=== PATIENT | female | born 1940 | race Two or more races ===

== ENCOUNTER 2023-12-14 15:22 | Inpatient (IN) | payer OTHER, MEDICAID ==
[~2023-12-14] VITALS: Ht 152.4 cm; Wt 73.2 kg
--- NOTE | 2023-12-14 15:30 | ED.PDOC ---
GI ASSESSMENT HPI Comments 83 y.o female with PMH of HTN, DM, hyperlipidemia, asthma, AFIB, presents to the ED via EMS for a chief complaint of rectal bleeding associated with constipation and suprapubic pain. EMS reports patient was at [facility] clinic today for c/o of ongoing constipation, had an enema inserted and shortly after staff noticed patient had bleeding. Patient is on Eliquis for AFIB. Patient complains of sharp, constant abdominal pain rating a 9/10 on the pain scale that has no alleviating factors. Patient denies any nausea, vomiting, fever, chills, or urinary symptoms. Time Seen by MD: 15:22 Reviewed Notes: Nurses Notes, Dry Wall Nailer Notes, Medications, Allergies Information Source: Patient, Emergency Med Personnel Mode of Arrival: EMS Timing: Came on: Gradually Duration: Since onset Quality: Sharp Vomitus: None Stool: Empty Severity: Moderate Recent: None Recent Hx of: Constipation Pain Location: Suprapubic Associated sign and symptoms: Abdominal Pain, Blood in Stool Past Medical History PAST MEDICAL HISTORY: AFIB, Asthma, DM, High Lipids, HTN Surgical History: Pacemaker Surgical History (Other): cataracts BATH ATTENDANT History: No Pertinent BATH ATTENDANT History Family History Family History: Reviewed,noncontributory to illness, No family hx of Cancer, No family hx of DM, No family hx of Heart aayush, No family hx of HTN, No family hx ofKidney aayush, No family hx of Liver aayush, No family hx of Lung aayush, No family hx of Stroke Social History Smoker: Non-Smoker Alcohol: Denies ETOH Use Drugs: Denies Drug Use Lives In: Home Constitutional: denies: chills, diaphoresis, fatigue, fever, malaise, sweats, weakness, others EENTM: denies: blurred vision, double vision, ear bleeding, ear discharge, ear drainage, ear pain, ear ringing, eye pain, eye redness, hearing loss, mouth pain, mouth swelling, nasal discharge, nose bleeding, nose congestion, nose pain, photophobia, tearing, throat pain, throat swelling, voice changes, others Respiratory: denies: cough, hemoptysis, orthopnea, SOB at rest, shortness of breath, SOB with excertion, stridor, wheezing, others Cardiovascular: denies: chest pain, dizzy spells, diaphoresis, Dyspnea on exertion, edema, irregular heart beat, left arm pain, lightheadedness, palpitations, PND, syncope, others Gastrointestinal: reports: abdominal pain, rectal bleeding; denies: abdomen distended, blood streaked bowels, constipated, diarrhea, dysphagia, difficulty swallowing, hematemesis, melena, nausea, poor appetite, poor fluid intake, rectal pain, vomiting, others Genitourinary: denies: abnormal vagina bleeding, burning, dyspareunia, dysuria, flank pain, frequency, hematuria, incontinence, pain, , vagina discharge, urgency, others Neurological: denies: dizziness, fainting, headache, left sided numbness, left sided weakness, numbness, paresthesia, pre-existing deficit, right sided numbness, right sided weakness, seizure, speech problems, tingling, tremors, weakness, others Musculoskeletal: denies: back pain, gout, joint pain, joint swelling, muscle pain, muscle stiffness, neck pain, others Integumetry: denies: bruises, change in color, change in hair/nails, dryness, laceration, lesions, lumps, rash, wounds, others Allergic/Immunocompromised: denies: Difficulty Healing, Frequent Infections, Hives, Itching, others Hematologic/Lymphatic: denies: anemia, blood clots, easy bleeding, easy b ruising, swollen glands, others Endocrine: denies: excessive hunger, excessive sweating, excessive thirst, excessive urination, flushing, intolerance to cold, intolerance to heat, unexplained weight gain, unexplained weight loss, others Psychiatric: denies: anxiety, bipolar disorder, depression, hopeless, panic disorder, schizophrenia, sleepless, suicidal, others All Other Systems: Reviewed and Negative Physical Exam General Appearance: Moderate Distress HEENT: Normal ENT Inspection, Pharynx Normal, TMs Normal Neck: Full Range of Motion, Non-Tender, Normal, Normal Inspection Respiratory: Chest Non-Tender, Lungs Clear, No Accessory Muscle Use, No Respiratory Distress, Normal Breath Sounds Cardiovascular: No Edema, No JVD, No Murmur, No Gallop, Normal Peripheral Pulses, Regular Rate/Rhythm Breast Exam: Deferred Gastrointestinal: Diffuse, No Organomegaly, No Pulsatile Mass, Normal Bowel Sounds, Soft, Tenderness Genitalia: Deferred Pelvic: Deferred Rectal: Deferred Extremities: No calf tenderness, Normal capillary refill, Normal inspection, Normal range of motion, Non-tender, No pedal edema Musculoskeletal : Apperance: Normal Neurologic: Alert, director of purchasing II-XII nml as Tested, No Motor Deficits, Normal Affect, Normal Mood, No Sensory Deficits Cerebellar Function: Normal Reflexes: Normal Skin: Dry, Normal Color, Warm Lymphatic: No Adenopathy Was a procedure done? Was a procedure done?: No GI differential Dx Differential Diagnosis: Constipation, Esophagitis, Gastritis/PUD, Esophageal Varicies X-Ray, Labs, Meds, VS Vital Signs Date Time Temp Pulse Resp B/P (MAP) Pulse Ox O2 Delivery O2 Flow Rate FiO2 12/14/23 15:43 98.3 68 16 107/62 (77) 97 Lab Test 12/14/23 15:53 Range/Units White Blood Count 8.4 4.4-10.8 10^3/uL Red Blood Count 4.18 4.0-5.20 10^6/uL Hemoglobin 13.8 12.2-16.2 g/dL Hematocrit 40.5 36.0-46.0 % Mean Corpuscular Volume 96.9 80.0-100.0 fL Mean Corpuscular Hemoglobin 33.1 H 28.0-32.0 pg Mean Corpuscular Hemoglobin Concent 34.2 32.0-36.0 g/dL Red Cell Distribution Width 14.8 H 11.8-14.3 % Platelet Count 247 140-450 10^3/uL Mean Platelet Volume 7.9 6.9-10.8 fL Neutrophils (%) (Auto) 77.7 37.0-80.0 % Lymphocytes (%) (Auto) 12.1 10.0-50.0 % Monocytes (%) (Auto) 8.9 0.0-12.0 % Eosinophils (%) (Auto) 0.8 0.0-7.0 % Basophils (%) (Auto) 0.5 0.0-2.0 % Neutrophils # (Auto) 6.5 1.6-8.6 10 ^3/uL Lymphocytes # (Auto) 1.0 0.4-5.4 10 ^3/uL Monocytes # (Auto) 0.7 0-1.3 10 ^3/uL Eosinophils # (Auto) 0.1 0-0.8 10 ^3/uL Basophils # (Auto) 0 0-0.2 10 ^3/uL Nucleated Red Blood Cells 0.1 % Sodium Level 137 136-145 mmol/L Potassium Level 2.5 *L 3.5-5.1 mmol/L Chloride Level 98 98-107 mmol/L Carbon Dioxide Level 31 20-31 mmol/L Anion Gap 8 5-15 Blood Urea Nitrogen 41 H 9-23 mg/dL Creatinine 1.19 H 0.550-1.02 mg/dL Glomerular Filtration Rate Calc 45 >90 mL/min BUN/Creatinine Ratio 34.5 H 10.0-20.0 Serum Glucose 123 H 74-106 mg/dL Calcium Level 10.7 H 8.7-10.4 mg/dL Total Bilirubin 0.5 0.2-1.0 mg/dL Aspartate Amino Transferase (AST) 25 13-40 U/L Alanine Aminotransferase (ALT) 22 7-40 U/L Alkaline Phosphatase 123 H 46-116 U/L Total Protein 7.0 5.7-8.2 g/dL Albumin 4.3 3.2-4.8 g/dL The patient's CBC is within normal limits The chemistry panel shows hypokalemia at 2.5 The BUN is 41 the creatinine is 1.[address] scan of the abdomen and pelvis shows: IMPRESSION: No evidence of acute abdominopelvic abnormalities. Small right hepatic lobe cyst. Moderate amount of fecal material within the colon. Enlarged prostate. Recommend correlation with PSA. At this time, the patient is being admitted to the hospitalist. The patient's diagnosis is abdominal pain and fecal impaction We did speak to the patient's primary care physician about the patient's lower GI bleeding as well. Images Reviewed?: Images reviewed and evaluated by me Time of 1ST Reevaluation: 15:26 Reevaluation 1ST: Unchanged Patient Education/Counseling: Diagnosis, Treatment, Prognosis Family Education/Counseling: No Family Present Departure 1 Departure Time of Disposition: 17:14 Impression: Primary Impression: Intractable abdominal pain Additional Impressions: Fecal impaction Lower GI bleed Disposition: ADMITTED INPATIENT Admit to: Med Surg Condition: Fair Critical Care Note Critical Care Time?: No Stability Stability form required: Yes Unstable for transfer: ED Physician Assesment (Clinical assesment) I personally scribed for CARLOS COVARRUBIAS MD ([email or web address]) on 12/14/23 at 15:30. Electronically submitted by Britany Gould ([facility]). CARLOS COVARRUBIAS MD Dec 14, 2023 15:30
[2023-12-14 16:13] LABS: Basophils # (auto) 0 10 ^3/uL (0-0.2); Basophils % (auto) 0.5 % (0.0-2.0); Eosinophils # (auto) 0.1 10 ^3/uL (0-0.8); Eosinophils % (auto) 0.8 % (0.0-7.0); Hematocrit 40.5 % (36.0-46.0); Hemoglobin 13.8 g/dL (12.2-16.2); Lymphocytes % (auto) 12.1 % (10.0-50.0); Mean Corpuscular Hemoglobin 33.1 pg (28.0-32.0); Mean Corpuscular Hgb Conc. 34.2 g/dL (32.0-36.0); Mean Corpuscular Volume 96.9 fL (80.0-100.0); Monocytes # (auto) 0.7 10 ^3/uL (0-1.3); Monocytes % (auto) 8.9 % (0.0-12.0); Neutrophils # (auto) 6.5 10 ^3/uL (1.6-8.6); Neutrophils % (auto) 77.7 % (37.0-80.0); Nucleated Red Blood Cells % 0.1 %; Platelet Count (auto) 247 10^3/uL (140-450); Red Blood Cells 4.18 10^6/uL (4.0-5.20); Red Cell Distribution Width 14.8 % (11.8-14.3); White Blood Cell 8.4 10^3/uL (4.4-10.8)
[2023-12-14 16:34] LABS: Alanine Aminotransferase 22 U/L (7-40); Albumin 4.3 g/dL (3.2-4.8); Alkaline Phosphatase 123 U/L (46-116); Anion Gap 8 (5-15); Aspartate Aminotransferase 25 U/L (13-40); BUN/Creatinine Ratio 34.5 (10.0-20.0); Bilirubin, Total 0.5 mg/dL (0.2-1.0); Blood Urea Nitrogen 41 mg/dL (9-23); Calcium 10.7 mg/dL (8.7-10.4); Carbon Dioxide 31 mmol/L (20-31); Chloride 98 mmol/L (98-107); Glucose 123 mg/dL (74-106); Sodium 137 mmol/L (136-145)
[2023-12-14 16:48] LABS: Potassium 2.5 mmol/L (3.5-5.1)
[2023-12-14 17:03] VITALS: PULSE 76; RESP 18; O2SAT 98
--- NOTE | 2023-12-14 17:06 | DVH ---
Exam: CT CT AB PEL WO CON-NO ORAL OR IV History: PAIN Comparison Study: None available at time of dictation. TECHNIQUE: Multidetector CT of the abdomen was performed from lung bases to pubic symphysis. Imaging was performed without IV contrast. Axial, coronal and sagittal multiplanar reformats were obtained fr om the axial data set by the technologist. Radiation Dose Information: CT Dose: CTDI volume is 24.84 mGy. Dose-length product is 1151.95 mGy*cm FINDINGS: Evaluation of solid organs is limited due to lack of intravenous contrast use. Findings: Lung Bases: No acute or significant lung base finding. Normal heart size. No pleural or pericardial effusion. Liver: The liver is normal in size. No focal lesions. Gallbladder and Biliary Tree: Gallbladder is been surgically removed. Spleen: Unremarkable Pancreas: The pancreas is grossly normal in appearance. Adrenal Glands: Unremarkable Kidneys: Kidneys are grossly normal without calculi. Mild bilateral pyelocaliectasis. may be due to urinary distention. There is a 9-10 mm hyperdense cortical lesion left kidney most likely a hyperden se cyst. Bladder: Marked urinary distention measuring 18 cm x 11 cm x 18 cm. Bowel: The stomach is grossly normal in appearance. Small bowel and colon are normal in caliber and d istribution. 8 x 7 cm stool-filled rectum consistent with fecal impaction. The appendix is not visual ized; however, no secondary findings of acute appendicitis identified. Ascites: Absent Lymphadenopathy: No mesenteric, retroperitoneal or periportal lymphadenopathy. Abdominal Wall and Mesentery: 6 x 5 cm fat containing umbilical hernia. Vasculature: The visualized abdominal aorta is normal in size and caliber. Evaluation of abdominal a nd pelvic vessels is limited due to lack of intravenous contrast. Pelvic Organs: Unremarkable Musculoskeletal: No aggressive focal bony lesions, acute fractures or dislocation. Dextroscoliosis wi th bony spondylosis and degenerative disc changes throughout the lumbar spine. Soft tissues: Unremarkable IMPRESSION: 1. Urinary retention. Markedly distended bladder with urine measuring 18 x 11 x 18 cm. 2. 5 x 6 cm fat containing ventral hernia. 3. Gallbladder is been surgically removed. Radiation optimization: All CT scans at this facility use at least one of these dose optimization audi hniques: automated exposure control mA and/or kV adjustment per patient size (includes targeted exam s where dose is matched to clinical indication) or iterative reconstruction.
[2023-12-14] MEDS: POTASSIUM CHL 20MEQ/100ML 100 ML IV ONE (17:37)
[2023-12-14] MEDS: MORPHINE SULFATE INJ 2 MG/ml SYRG IV ONE (17:38)
[2023-12-14] MEDS: ONDANSETRON HCL 4 MG/2 ML VIAL IV ONE (17:39)
[2023-12-14] MEDS ORDERED: NITROGLYCERIN 0.4 MG SL TAB SL PRN (21:15)
[2023-12-14] MEDS ORDERED: ACETAMINOPHEN 325 MG TAB PO PRN (21:15)
[2023-12-14] MEDS ORDERED: ONDANSETRON HCL 4 MG/2 ML VIAL IV PRN (21:15)
[2023-12-14] MEDS ORDERED: MORPHINE SULFATE INJ 2 MG/ml SYRG IV PRN (21:15)
--- NOTE | 2023-12-14 21:24 | DVHHPRES ---
History of Present Illness Resident Creating Document: ANDRES ANDREWS RESIDENT History of Present Illness This is a 83 yr old female with PMH of HTN, CHF, s/p pacemaker , type 2 DM, hyperlipidemia, asthma, AFIB on eloquis, presented to the ED via EMS for a chief complaint of rectal bleeding associated with constipation and suprapubic pain. EMS reports patient was at [facility] clinic today for c/o of ongoing constipation, had an enema inserted and shortly after staff noticed patient had bleeding. Patient also complains of sharp, constant localized abdominal pain 9/10 with no aggravating or relieving factors and not associated with nausea and vomiting. The patient also mentions bilateral leg swelling for last 1 week but denies any shortness of breath cough or dizziness. Cardiovascular: AFIB, CHF, HTN Endocrine: Diabetes Past Medical History HTN, CHF, s/p pacemaker , type 2 DM, hyperlipidemia, asthma, AFIB Past Surgical History Surgery for pacemaker implantation Smoke: No ALCOHOL: none Drugs: None Lives: Alone Review of Systems Constitutional: No: Fever, Chills, Sweats, Weakness, Malaise, Other Eyes: No: Pain, Vision change, Conjunctivae inflammation, Eyelid inflammation, Other, Redness ENT: No: Ear pain, Ear discharge, Nose pain, Nose discharge, Nose congestion, Mouth pain, Mouth swelling, Throat pain, Throat swelling, Other Respiratory: No: Cough, Dry, Shortness of breath, SOB with excertion, Wheezing, Hemoptysis, Pleuritic Pain, Sputum, Wheezing, Other Cardiovascular: No: Chest Pain, Palpitations, Orthopnea, Paroxysmal Noc. Dyspn ea, Edema, Lt Headedness, Other Gastrointestinal: Abdominal Pain, Constipation, Hematochezia; No: Nausea, Vomiting, Diarrhea, Melena, Other Genitourinary: No Dysuria, No Frequency, No Incontinence, No Hematuria, No Retention, No Other Musculoskeletal: No: other, neck pain, shoulder pain, arm pain, back pain, hand pain, leg pain, foot pain Skin: No: Rash, Lesions, Jaundice, Bruising, Other Neurological: No: Weakness, Numbness, Incoordination, Change in speech, Confusion, Seizures, Other Allergies: Coded Allergies: Penicillins (Verified Allergy, Unknown, 12/14/23) Medications Current Medications Medications Dose Ordered Sig/Mary Route Start Time Stop Time Status Last Admin Dose Admin Sodium Chloride 10 ml Q8HR IV 12/14/23 22:00 Acetaminophen 325 mg Q4HP PRN PO 12/14/23 21:15 Acetaminophen/ Hydrocodone Bitart 1 tab Q4HP PRN PO 12/14/23 21:15 Ondansetron HCl 4 mg Q4HP PRN IV 12/14/23 21:15 Enoxaparin Sodium 40 mg DAILY SC 12/15/23 10:00 Nitroglycerin 0.4 mg Q5MINP PRN SL 12/14/23 21:15 Morphine Sulfate 2 mg Q30M PRN IV 12/14/23 21:15 Exam Vital Signs Vital Signs Date Time Temp Pulse Resp B/P (MAP) Pulse Ox O2 Delivery O2 Flow Rate FiO2 12/14/23 20:00 60 13 100/36 (57) 94 12/14/23 19:30 Room Air* 0 21 12/14/23 17:03 98.2 98.2 General Appearance: Alert, Oriented X3, Cooperative, No acute distress HEENT: Atraumatic, PERRLA, EOMI, Mucous membr. moist/pink Respiratory: Clear to auscultation, Normal air movement Cardiovascular: Regular rate, Normal S1, Normal S2, No murmurs Abdominal: Normal bowel sounds, Soft, No tenderness, No hepatospenomegaly, No masses Extremities: No clubbing, No cyanosis, Normal pulses, No tenderness/swelling, Other (Bilateral 2+ pedal edema) Skin: No rashes, No breakdown, No significant lesion Neuro: Normal speech, Strength at 5/5 X4 ext, Normal tone, Sensation intact, Other (Use walker, grossly intact cranial nerves) Psych/Mental Status: Mental status NL, Mood NL Labs/Xrays Labs Test 12/14/23 15:53 Range/Units White Blood Count 8.4 4.4-10.8 10^3/uL Red Blood Count 4.18 4.0-5.20 10^6/uL Hemoglobin 13.8 12.2-16.2 g/dL Hematocrit 40.5 36.0-46.0 % Mean Corpuscular Volume 96.9 80.0-100.0 fL Mean Corpuscular Hemoglobin 33.1 H 28.0-32.0 pg Mean Corpuscular Hemoglobin Concent 34.2 32.0-36.0 g/dL Red Cell Distribution Width 14.8 H 11.8-14.3 % Platelet Count 247 140-450 10^3/uL Mean Platelet Volume 7.9 6.9-10.8 fL Neutrophils (%) (Auto) 77.7 37.0-80.0 % Lymphocytes (%) (Auto) 12.1 10.0-50.0 % Monocytes (%) (Auto) 8.9 0.0-12.0 % Eosinophils (%) (Auto) 0.8 0.0-7.0 % Basophils (%) (Auto) 0.5 0.0-2.0 % Neutrophils # (Auto) 6.5 1.6-8.6 10 ^3/uL Lymphocytes # (Auto) 1.0 0.4-5.4 10 ^3/uL Monocytes # (Auto) 0.7 0-1.3 10 ^3/uL Eosinophils # (Auto) 0.1 0-0.8 10 ^3/uL Basophils # (Auto) 0 0-0.2 10 ^3/uL Nucleated Red Blood Cells 0.1 % Sodium Level 137 136-145 mmol/L Potassium Level 2.5 *L 3.5-5.1 mmol/L Chloride Level 98 98-107 mmol/L Carbon Dioxide Level 31 20-31 mmol/L Anion Gap 8 5-15 Blood Urea Nitrogen 41 H 9-23 mg/dL Creatinine 1.19 H 0.550-1.02 mg/dL Glomerular Filtration Rate Calc 45 >90 mL/min BUN/Creatinine Ratio 34.5 H 10.0-20.0 Serum Glucose 123 H 74-106 mg/dL Calcium Level 10.7 H 8.7-10.4 mg/dL Total Bilirubin 0.5 0.2-1.0 mg/dL Aspartate Amino Transferase (AST) 25 13-40 U/L Alanine Aminotransferase (ALT) 22 7-40 U/L Alkaline Phosphatase 123 H 46-116 U/L Total Protein 7.0 5.7-8.2 g/dL Albumin 4.3 3.2-4.8 g/dL Assessment/Plan Assessment/Plan Assessment and plan: # Rectal bleeding likely due to constipation, rule out lower GI bleeding - CT abdomen pelvis revealed no acute abdominopelvic findings. - Clear liquid diet - Protonix 40 mg IV daily - Ordered FOBT - Monitor H/H # Low transit constipation - Lactulose 30 mL p.o. once. # GOLDY likely due to hemodynamically mediated/VMN - IV normal saline at 75 mL/hr - Monitor BMP # Chronic atrial fibrillation with secondary hypercoagulable state - Amiodarone 100 mg p.o. daily - Hold Eliquis due to possibility of the bleeding # Hypercalcemia likely due to dehydration - IV normal saline at 75 mL/hr # Hypokalemia - Replenished # Elevated alkaline phosphatase, rule out liver pathology - Ordered hepatitis panel and and coagulation studies # PUD prophylaxis - Protonix 40 mg IV daily # DVT prophylaxis - Lovenox 40 mg sc daily Goal of care discussed with the patient for more than 20 minutes full code Plan of treatment discussed with Dr. Duffy Plan discussed with: Patient, Other My Orders Orders - ANDRES ANDREWS RESIDENT Procedure Category Date Status Time Admit ADMIT 12/14/23 Transmitted 21:11 Allergies ALPHONSO 12/14/23 In Process 21:11 Code Status CODE 12/14/23 Transmitted 21:11 Sodium Chloride Lock PHA 12/14/23 In Process (Saline Lock Ns) 22:00 Oxygen Per Hour RT 12/14/23 Transmitted 21:11 Acetaminophen Tablet PHA 12/14/23 In Process (Tylenol Tablet) 21:15 Hydrocodone-Acet PHA 12/14/23 In Process 5/325mg Tab ([place] 21:15 Ondansetron Hcl PHA 12/14/23 In Process (Zofran) 21:15 Enoxaparin Sodium PHA 12/15/23 In Process (Lovenox) 10:00 Fall Risk Precautions ALPHONSO 12/14/[address] 21:11 Complete Blood Count LAB 12/15/23 Verified 04:00 Comprehensive LAB 12/15/23 Verified Metabolic Panel 04:00 Cardiac DIET 12/15/23 Transmitted Diet-2gna,Lofat,Lochol Breakfast Pt Request For Service PT 12/14/23 Logged 21:11 Echo 2d Mode Cardiac US 12/14/23 Logged DOP 21:11 Nitroglycerin PHA 12/14/23 In Process Sublingual (Ntrostat 21:15 Morphine Sulfate PHA 12/14/23 In Process Injection 21:15 Oxygen By Nasal RT 12/14/23 Transmitted Cannula 21:11 Stat Ekg For Chest [facility] 12/14/23 In Process Pain 21:11 Notify Of Changes [facility] 12/14/23 In Process From Base 21:11 [employer]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
--- NOTE | 2023-12-14 21:54 | DVH ---
Bilateral lower extremity venous duplex Clinical History: Bilateral leg swelling Comparison: None Technique: Duplex Doppler evaluation of the deep venous systems of both lower extremities from the common femora l veins to the popliteal veins including color Doppler and spectral/pulsed waveform analysis was perf ormed. Findings: RIGHT SIDE: The common femoral vein demonstrates appropriate compressibility and waveform variability. There is compressibility/patency of the great saphenous vein at the proximal thigh. The femoral vein demonstrates appropriate compressibility and waveform variability. The deep femoral vein demonstrates appropriate compressibility and waveform variability. The popliteal vein demonstrates appropriate compressibility and waveform variability. There is normal compressibility at the tibioperoneal trunk. LEFT SIDE: The common femoral vein demonstrates appropriate compressibility and waveform variability. There is compressibility/patency of the great saphenous vein at the proximal thigh. The femoral vein demonstrates appropriate compressibility and waveform variability. The deep femoral vein demonstrates appropriate compressibility and waveform variability. The popliteal vein demonstrates appropriate compressibility and waveform variability. There is normal compressibility at the tibioperoneal trunk. Impression: 1. No right or left femoropopliteal venous thrombosis.
[2023-12-14] MEDS: POTASSIUM EFFERVESENT TAB 25 MEQ PO ONE (21:59)
[2023-12-14] MEDS: SODIUM CHLOR 0.9% PF (SALINE LOCK) 10ML VIAL/SYR IV SCH (21:59)
--- NOTE | 2023-12-14 22:20 | DVH ---
CHEST RADIOGRAPH Indication:CHF Technique: Single frontal view of the chest was obtained Comparison: None FINDINGS: Lines and Tubes: Dual-chamber pacemaker is in place with pulse generator over the left chest. Lungs: No focal consolidation. Pleura: No effusion. No pneumothorax. Cardiomediastinal contours: Cardiac size is the upper limits of normal. Bones: No acute osseous abnormality. IMPRESSION: 1. No acute cardiopulmonary disease. 2. Cardiac size upper limits of normal. 3. No radiographically apparent pulmonary edema.
[2023-12-14 22:44] LABS: INR 1.1 (0.9-1.15); Partial Thromboplastin Time 28.7 SEC (24.5-34.5); Prothrombin Time 11.6 sec (9.3-11.8)
[2023-12-15] VITALS (8 sets, daily range): BP systolic 89–108; BP diastolic 36–92; PULSE 62–70; RESP 14–18; TEMP 98–99.1; O2SAT 91–99
[2023-12-15 00:09] LABS: Free T3 2.79 pg/mL (2.3-4.2); Free T4 (Free Thyroxine) 1.21 ng/dL (0.89-1.76)
[2023-12-15] MEDS: LACTULOSE 20Gm/30ML SOLN PO ONE (01:02)
[2023-12-15] MEDS: SODIUM CHLORIDE 0.9% 1,000 ML IV SCH ×2 (01:03→08:44)
[2023-12-15] MEDS ORDERED: APIX2.5T PO (02:37)
[2023-12-15] MEDS ORDERED: SITA100T7 PO (02:37)
[2023-12-15] MEDS ORDERED: FURO40TA4 PO (02:37)
[2023-12-15] MEDS ORDERED: PANT40T PO (02:37)
[2023-12-15] MEDS ORDERED: ROSU20TA56 PO (02:37)
[2023-12-15] MEDS ORDERED: METO-289 PO (02:37)
[2023-12-15 05:03] LABS: Basophils # (auto) 0 10 ^3/uL (0-0.2); Basophils % (auto) 0.4 % (0.0-2.0); Eosinophils # (auto) 0 10 ^3/uL (0-0.8); Eosinophils % (auto) 0.7 % (0.0-7.0); Hematocrit 38.8 % (36.0-46.0); Hemoglobin 13.4 g/dL (12.2-16.2); Lymphocytes # (auto) 1.1 10 ^3/uL (0.4-5.4); Lymphocytes % (auto) 15.7 % (10.0-50.0); Mean Corpuscular Hemoglobin 33.5 pg (28.0-32.0); Mean Corpuscular Hgb Conc. 34.6 g/dL (32.0-36.0); Mean Corpuscular Volume 97.1 fL (80.0-100.0); Monocytes # (auto) 0.7 10 ^3/uL (0-1.3); Monocytes % (auto) 9.4 % (0.0-12.0); Neutrophils # (auto) 5.2 10 ^3/uL (1.6-8.6); Neutrophils % (auto) 73.8 % (37.0-80.0); Nucleated Red Blood Cells % 0.2 %; Platelet Count (auto) 217 10^3/uL (140-450); Red Cell Distribution Width 14.7 % (11.8-14.3)
[2023-12-15 05:25] LABS: Alanine Aminotransferase 21 U/L (7-40); Albumin 3.8 g/dL (3.2-4.8); Alkaline Phosphatase 108 U/L (46-116); Anion Gap 9 (5-15); Aspartate Aminotransferase 21 U/L (13-40); BUN/Creatinine Ratio 37.2 (10.0-20.0); Bilirubin, Total 0.6 mg/dL (0.2-1.0); Blood Urea Nitrogen 42 mg/dL (9-23); Calcium 10.4 mg/dL (8.7-10.4); Carbon Dioxide 31 mmol/L (20-31); Chloride 102 mmol/L (98-107); Glucose 103 mg/dL (74-106); Sodium 142 mmol/L (136-145); Total Protein 6.5 g/dL (5.7-8.2)
[2023-12-15 05:30] LABS: Potassium 2.5 mmol/L (3.5-5.1)
[2023-12-15] MEDS ORDERED: PANTOPRAZOLE 40 MG TAB PO SCH (06:00)
[2023-12-15] MEDS: POTASSIUM CHL 20 Meq TABLET PO ONE (06:36)
[2023-12-15] MEDS ORDERED: SOD CHL 0.9%/ KCL 40MEQ 1,000 ML IV ONE (07:15)
[2023-12-15] MEDS: POTASSIUM CHL 20MEQ/100ML 100 ML IV SCH (08:44)
[2023-12-15] MEDS: PANTOPRAZOLE 40 MG/10 ML VIAL INJ IV SCH (08:44)
[2023-12-15] MEDS: AMIODARONE HCL 200 MG TAB PO SCH (08:45)
[2023-12-15] MEDS: POTASSIUM CHL 20 Meq TABLET PO SCH (08:45)
[2023-12-15] MEDS ORDERED: LACTULOSE 20Gm/30ML SOLN PO PRN (09:15)
--- NOTE | 2023-12-15 09:32 | DVHPNRES ---
Progress Note Date Seen: Dec 15, 2023 Resident Creating Document: YESSY GÓMEZ RESIDENT Medical Necessity Reason Pt with a Central, PICC or Fol: No Subjective Review of Systems Patient is 83 years old female with past medical history not limited to atrial fibrillation on Eliquis, on pacemaker, congestive heart failure, hyperlipidemia, hypertension, diabetes mellitus type 2, asthma came with a complaint of constipation for last 6-7 days. As per patient she did not have a bowel movement last 6-7 days even though she tried and so many attempts. Patient also reported pain in the lower abdomen 9/10 in severity, coronary stent, crampy in nature,. Patient also reported having (post treatment with laxative) rectal bleeding after she had bowel movement coming to the hospital, no bleeding per rectum before coming to the hospital. Patient denied any fever, chest pain, shortness of breath, acute joint pain or swelling, dysarthria. Initial lab workup revealed hypokalemia potassium 2.5, GOLDY serum creatinine 1.19> 1.13, no acute muscle weakness or lethargy. CT abdomen revealed- Urinary retention. Markedly distended bladder with urine measuring 18 x 11 x 18 cm. 5 x 6 cm fat containing ventral hernia. Gallbladder is been surgically removed. Lower extremity Doppler Study negative for DVT. CXR no acute cardiopulmonary disease. Echo 2D-Normal left ventricular size and dimension. Normal left ventricular systolic function estimated ejection fraction 55%. There is a grade 1 diastolic dysfunction. Normal right ventricular size and dimension. Normal right ventricular systolic function. PMH-atrial fibrillation on Eliquis, on pacemaker, congestive heart failure, hypertension, hyperlipidemia, diabetes mellitus type 2, asthma PSH- status post cholecystectomy Allergy- penicillin Personal History/ Social History- lives alone, nonsmoker, nonalcoholic, no drug abuser. Meds Eliquis 5 mg b.i.d., Lasix 40 mg daily, metoprolol succinate 50 mg p.o. daily, pantoprazole 40 mg daily, rosuvastatin 20 mg daily, sitagliptin 100 mg p.o. daily, Patient was seen today at the bedside. Patient reports feeling better today Cardiovascular- deny acute chest pain or shortness of breath or cough or palpitation Respiratory- denies cough or short of breath or wheezing Gastrointestinal- denies any nausea or vomiting Musculoskeletal-denies acute joint swelling or tenderness or redness Neurological- denies acute dysarthria, dysphagia, change in vision Psychiatry- denies depression or SI or HI Skin- denies acute rash or purpura Patient was seen today for clinical evaluation. Labs and chart reviewed. Patient with hypokalemia, denied acute muscle weakness or lethargy. Patient on potassium supplement IV. Patient had bowel movement after coming here. Patient's lower abdominal pain has subsided. Very mild abdominal tenderness on palpation. Rectal examination revealed lost of fecal materials in the rectum. Ordered Fleet enema. Bladder scan revealed->1000 ml. Following blood recent finding Dillon's catheter was started and 2000 mL of urine was drained. We will continue with Dillon's catheter for now. Objective vital signs Vital Sign Date Time Temp Pulse Resp B/P (MAP) Pulse Ox O2 Delivery O2 Flow Rate FiO2 12/15/23 05:00 98.0 67 18 90/55 (67) 91 98.0 12/15/23 00:21 Room Air* 0 21 Total Intake and Output 12/14/23 12/14/23 12/15/23 15:00 23:00 07:00 Intake Total 100 ml Balance 100 ml medications Current Medications Medications Dose Ordered Sig/Mary Route Start Time Stop Time Status Last Admin Dose Admin Sodium Chloride 10 ml Q8HR IV 12/14/23 22:00 12/15/23 05:54 10 ML Acetaminophen 325 mg Q4HP PRN PO 12/14/23 21:15 Acetaminophen/ Hydrocodone Bitart 1 tab Q4HP PRN PO 12/14/23 21:15 Ondansetron HCl 4 mg Q4HP PRN IV 12/14/23 21:15 Nitroglycerin 0.4 mg Q5MINP PRN SL 12/14/23 21:15 Morphine Sulfate 2 mg Q30M PRN IV 12/14/23 21:15 Amiodarone HCl 200 mg DAILY PO 12/15/23 10:00 12/15/23 08:45 200 MG Pantoprazole Sodium 40 mg DAILY IV 12/15/23 10:00 12/15/23 08:44 40 MG Atorvastatin Calcium 20 mg HS PO 12/15/23 22:00 Potassium Chloride 40 meq BID PO 12/15/23 10:00 12/15/23 08:45 40 MEQ Sodium Chloride 1,000 ml @ 120 mls/hr Q8H20M IV 12/15/23 07:15 12/15/23 08:44 120 MLS/HR Potassium Chloride 100 ml @ 50 mls/hr Q2H IV 12/15/23 07:30 12/15/23 13:29 12/15/23 08:44 50 MLS/HR Examination General examination- awake, alert, oriented, conversant HEENT- PEERLA, no acute nasal discharge Cardiovascular- S1-S2 audible, rate and rhythm regular, no murmur Respiratory- CTAB, no wheeze or rhonchi Gastrointestinal -very mildly tender, bowel sound+. Nondistended Musculoskeletal-no acute joint swelling or tenderness or redness# Lower extremity- no leg edema Neurological- cranial nerves intact, no acute dysarthria or dysphagia Psychiatry- denies depression or SI or HI Skin- no acute rash or purpura laboratory and microbiology Laboratory Tests 12/15/23 04:25 Test 12/15/23 04:25 Range/Units Serum Glucose 103 74-106 mg/dL Problem List/Assessment/Plan Problem List/Assessment/Plan # Lower abdominal pain likely due to constipation/cystitis/colitis -patient reported having constipation for last 6-7 days -patient had bowel movement after she got some treatment at the hospital. -CT abdomen- CT abdomen revealed- Urinary retention. Markedly distended bladder with urine measuring 18 x 11 x 18 cm. 5 x 6 cm fat containing ventral hernia. Gallbladder is been surgically removed -lactulose p.r.n. #Constipation -digital rectal examination reviewed huge fecal measures in the rectum, no acute fresh blood noted -patient had bowel movement after she got some treatment over at the hospital. -CT abdomen- CT abdomen revealed- Urinary retention. Markedly distended bladder with urine measuring 18 x 11 x 18 cm. 5 x 6 cm fat containing ventral hernia. Gallbladder is been surgically removed -Lactulose p.r.n. -Docusate 100 mg p.o. b.i.d. # GOLDY likely due to dehydration/VMN -serum creatinine 1.19> 1.13 -BUN 41>42 -continue IV fluid as prescribed and monitored BP -monitor CMP #Per rectal bleeding-like due to anal tear following defecation after constipation --digital rectal examination reviewed huge fecal measures in the rectum, no acute fresh blood noted -as per patient she had no per rectal bleeding at home -hemoglobin level is stable, hemoglobin 13.8> 13.4 -no fresh blood was seen on digital rectal examination likely due to fecal matters -FOBT positive, likely due to anal fissure -we will continue monitoring CBC if there is any drop of hemoglobin #Hypokalemia, Replinished potassium-2.5 >2.5>4.9 -serum Mg-2.4 -EKG with in sinus rhythm, flat T-wave -patient denied any lethargy or unusual muscle weakness -continue potassium supplement as ordered -repeat CMP -ordered telemetry monitoring #Post constipation per rectal bleeding -patient reported no more bleeding --no fresh blood was seen on digital rectal examination likely due to fecal matters #Elevated calcium maybe due to dehydration need to rule out other causes -continue ibuprofen as prescribed -mitral blood pressure -monitor CBC, CMP #Chronic atrial fibrillation with secondary hypercoagulable state, on pacemaker, -continue Eliquis 2.5 mg p.o. b.i.d. #HFpEF-no acute exacerbation -LVEF 55% -Lasix on hold due to soft BP - #hypertension -hold on antihypertensive medication due to soft BP #Diabetes mellitus type 2 -Hb A1c 4.9 - continue monitoring blood sugar level and dietary measures #Asthma -no acute exacerbation Goals of care/advance care planning; FULL CODE; discussed with the patient PUD prophylaxis: Pantoprazole DVT prophylaxis: On Eliquis Plan discussed with Dr. Martinez,,, nursing staff, patient Total time spent on patient evaluation, chart review, assessment and plan, discussion discussion >20 minutes Plan discussed with: Patient Plan discussed with: Patient, Other (RN) My Orders My Orders Orders - YESSY GÓMEZ Procedure Category Date Status Time Sodium Chloride 0.9% PHA 12/15/23 In Process 07:15 Basic Metabolic Panel LAB 12/15/23 Logged 09:00 Potassium Chl PHA 12/15/23 In Process 20meq/100ml 07:30 Date of Service: Dec 15, 2023 Billing Provider: VICTOR MANUEL MARTINEZ MD Common Visit Codes: 69961-[id number] INP/OBS CARE(HIGH) Secondary Visit Codes: 95531-[id number] CARE PLAN 30 MINUTES YESSY GÓMEZ Dec 15, 2023 09:32 VICTOR MANUEL MARTINEZ MD Dec 15, 2023 20:29
[2023-12-15] MEDS ORDERED: APIXABAN 2.5 MG TAB PO SCH (10:00)
[2023-12-15] MEDS ORDERED: ENOXAPARIN SOD 40 MG/0.4 ML SYRINGE SC SCH (10:00)
[2023-12-15] MEDS: FLEET ENEMA(ADULT) 135 ML PR ONE (12:15)
[2023-12-15 14:30] LABS: Urine Bacteria None Seen /hpf (None Seen)
--- NOTE | 2023-12-15 14:49 | DVHSR ---
APPROVED REPORT EXAM: LIMITED Two-dimensional and M-mode echocardiogram with Doppler and color Doppler. Blood Pressure: 90/55 mmHg INDICATION CHF RISK FACTORS Height: 5'0", Weight: 151 DIMENSIONS LVDd (3.8-5.7cm)LA (2D)2.9 (1.9-4.0cm)Aortic Root (2.0-3.7cm) EF (%) 60.0 (55-70%)Rt. Atrium3.1 (1.9-4.0cm)Asc. Aorta cm Mitral Valve MitralMitral Stenosis E wave0.71m/sMV Mean GR.mmHg A wave0.76m/sMV Peak GR.mmHg E/A ratio0.92D MVAcm2 DECEL [id number] 1/2 Timems Aortic Valve Aortic ValveAortic Stenosis V10.97m/Yo Mean GR.3mmHg V21.16m/Yo Peak GR.5mmHg LVOT Diameter1.8 (1.8-2.4cm)Doppler AVA2.13cm2 Other Information Quality : Technically LimitedRhythm : Technically limited study due to body habitus and patient lying flat. Conclusion Normal left ventricular size and dimension. Normal left ventricular systolic function estimated ejec tion fraction 55%. There is a grade 1 diastolic dysfunction. Normal right ventricular size and dimension. Normal right ventricular systolic function. Normal biatrial size and dimension. Normal aortic valve structure and function. Normal mitral valve structure and function. Normal tricuspid valve structure function. The pulmonary valve is grossly normal. No pericardial effusion.
[2023-12-15 14:58] LABS: Urine Blood Negative /uL (Negative); Urine Clarity Clear (Clear); Urine Color Light-Yellow (Yellow); Urine Protein, UAD Negative (Negative); Urine Specific Gravity 1.013 (1.001-1.035); Urine Urobilinogen Normal (Negative); Urine WBC 1 /hpf (0 - 5)
[2023-12-15 18:15] LABS: Basophils # (auto) 0 10 ^3/uL (0-0.2); Basophils % (auto) 0.2 % (0.0-2.0); Eosinophils # (auto) 0.1 10 ^3/uL (0-0.8); Hemoglobin 13.4 g/dL (12.2-16.2); Lymphocytes # (auto) 0.9 10 ^3/uL (0.4-5.4); Lymphocytes % (auto) 13.5 % (10.0-50.0); Mean Corpuscular Hemoglobin 33.6 pg (28.0-32.0); Mean Corpuscular Hgb Conc. 34.3 g/dL (32.0-36.0); Mean Corpuscular Volume 97.9 fL (80.0-100.0); Monocytes # (auto) 0.6 10 ^3/uL (0-1.3); Monocytes % (auto) 8.9 % (0.0-12.0); Neutrophils # (auto) 5.3 10 ^3/uL (1.6-8.6); Neutrophils % (auto) 76.4 % (37.0-80.0); Nucleated Red Blood Cells % 0.2 %; Platelet Count (auto) 215 10^3/uL (140-450); Red Blood Cells 3.98 10^6/uL (4.0-5.20); Red Cell Distribution Width 14.9 % (11.8-14.3)
[2023-12-15 18:23] LABS: Alanine Aminotransferase 18 U/L (7-40); Albumin 3.6 g/dL (3.2-4.8); Alkaline Phosphatase 105 U/L (46-116); Anion Gap 6 (5-15); Aspartate Aminotransferase 26 U/L (13-40); BUN/Creatinine Ratio 32.3 (10.0-20.0); Bilirubin, Total 0.7 mg/dL (0.2-1.0); Carbon Dioxide 29 mmol/L (20-31); Chloride 109 mmol/L (98-107); Glucose 87 mg/dL (74-106); Potassium 4.9 mmol/L (3.5-5.1); Sodium 144 mmol/L (136-145); Total Protein 6.2 g/dL (5.7-8.2)
[2023-12-15 18:30] LABS: Blood Urea Nitrogen 30 mg/dL (9-23)
[2023-12-15] MEDS: ATORVASTATIN 20 MG TAB PO SCH (21:24)
[2023-12-15] MEDS: APIXABAN 2.5 MG TAB PO SCH (21:24)
[2023-12-15] MEDS: DOCUSATE SOD 100 MG CAP PO SCH (21:24)
[2023-12-15] MEDS: HYDROcodone-ACET 5/325MG TAB PO PRN (21:28)
[2023-12-15] MEDS ORDERED: ATORVASTATIN 20 MG TAB PO SCH (22:00)
[2023-12-16] VITALS (8 sets, daily range): BP systolic 91–131; BP diastolic 50–88; PULSE 62–78; RESP 16–19; TEMP 97.6–98.9; O2SAT 93–98
[2023-12-16 05:38] LABS: Basophils # (auto) 0 10 ^3/uL (0-0.2); Basophils % (auto) 0.3 % (0.0-2.0); Eosinophils # (auto) 0.1 10 ^3/uL (0-0.8); Eosinophils % (auto) 0.8 % (0.0-7.0); Hematocrit 32.3 % (36.0-46.0); Hemoglobin 10.9 g/dL (12.2-16.2); Lymphocytes % (auto) 17.2 % (10.0-50.0); Mean Corpuscular Hemoglobin 33.3 pg (28.0-32.0); Mean Corpuscular Hgb Conc. 33.9 g/dL (32.0-36.0); Mean Corpuscular Volume 98.1 fL (80.0-100.0); Monocytes # (auto) 0.7 10 ^3/uL (0-1.3); Monocytes % (auto) 11.1 % (0.0-12.0); Neutrophils # (auto) 4.3 10 ^3/uL (1.6-8.6); Neutrophils % (auto) 70.6 % (37.0-80.0); Nucleated Red Blood Cells % 0.1 %; Platelet Count (auto) 187 10^3/uL (140-450); Red Blood Cells 3.29 10^6/uL (4.0-5.20); Red Cell Distribution Width 14.9 % (11.8-14.3)
[2023-12-16 05:58] LABS: Alanine Aminotransferase 14 U/L (7-40); Alkaline Phosphatase 89 U/L (46-116); Anion Gap 5 (5-15); Aspartate Aminotransferase 17 U/L (13-40); BUN/Creatinine Ratio 28.9 (10.0-20.0); Blood Urea Nitrogen 24 mg/dL (9-23); Calcium 9.4 mg/dL (8.7-10.4); Carbon Dioxide 28 mmol/L (20-31); Chloride 111 mmol/L (98-107); Glucose 87 mg/dL (74-106); Magnesium 2.2 mg/dL (1.6-2.6); Potassium 3.9 mmol/L (3.5-5.1); Sodium 144 mmol/L (136-145)
[2023-12-16 05:59] LABS: Bilirubin, Total 0.8 mg/dL (0.2-1.0); Total Protein 5.2 g/dL (5.7-8.2)
--- NOTE | 2023-12-16 09:50 | DVHINCON2 ---
Date of service: Dec 16, 2023 Reason for Consultation Cardiac Perspective History of Present Illness This is an 83-year old female known outside to our practice who initially presented with rectal bleeding with associated constipation and suprapubic pain. It is of report patient was evaluated at [facility] prior to initial arrival undergoing evaluation of the constipation. Reports indicate at that time patient underwent enema was later noted to experience rectal bleeding. Upon ED arrival, 12-lead electrocardiogram revealed an atrial paced rhythm at 64bpm, no ST segment changes. CT imagine of the abdominal/pelvis was performed revealing urinary retention with a markedly distended bladder for which she underwent indwelling gil catheter placement. CT imaging further revealed presence of a stool filled rectum consistent with fecal impaction which she was started on Colace 100mg twice daily with last reported bowel movement 12/15/2023. Stool occult blood found positive which initial HGB level of found to be 13.8 with subsequent downtrend to 10.9.Echocardiogram was performed revealing a preserved LVEF of 55% with underlying stage I diastolic dysfunction which chest imaging revealed no evidence for vascular congestion in presence of a normal BNP level of 88.77. BLE Venous Duplex found negative for DVT. Initial potassium level of 2.5 (later improved). Initial creatinine level of 1.19 to now 0.83. TSH level found to be 1.21 with a FT3 level of 2.79. Initial magnesium level of 2.4. Urinalysis revealed no evidence for UTI. At present, patient denies any active chest pain, shortness of breath, palpitations, dizziness, syncope, orthopnea, paroxysmal nocturnal dyspnea, or any further cardiac related symptoms. Cardiology services have now been involved for cardiac aspects of care. Past Medical History Reviewed Past Surgical History Reviewed Family History: FH: breast cancer G8 MOTHER FH: emphysema G8 FATHER FH: smoking G8 FATHER Allergies: Coded Allergies: Penicillins (Verified Allergy, Unknown, 12/14/23) Home Meds Reported Medications Nystatin (Klayesta) 100,000 Unit/Gm Pow 12/16/23 Mecobalamin (Q83-UVLICS) 1 Mg Chw, 1 TAB PO DAILY 12/16/23 Metolazone (Metolazone) 2.5 Mg Tab, 1 TAB PO 12/16/23 Empagliflozin (Jardiance) 10 Mg Tab, 1 TAB PO DAILY 12/16/23 Amiodarone HCl (Amiodarone HCl) 200 Mg Tab, 1 TAB PO DAILY 12/16/23 Pantoprazole Sodium Sesquihydr (Pantoprazole Sodium) 40 Mg Tab, 1 TAB PO DAILY 12/15/23 Apixaban Base (ELIQUIS) 2.5 Mg Tab, 1 TAB PO BID 12/15/23 Furosemide (Furosemide) 40 Mg Tab, 1 TAB PO DAILYPRN 12/15/23 Metoprolol Succinate (Metoprolol Succinate Er) 50 Mg Tab, 1 TAB PO DAILY 12/15/23 Sitagliptin Phosphate (Januvia) 100 Mg Tab, 1 TAB PO DAILY 12/15/23 Rosuvastatin Calcium (Rosuvastatin Calcium) 20 Mg Tab, 1 TAB PO DAILY 12/15/23 Current Medications Current Medications Medications (Trade) Dose Ordered Sig/Mary Route PRN Reason Start Time Stop Time Status Last Admin Enoxaparin Sodium (Lovenox) 40 mg DAILY SC 12/15/23 10:00 12/14/23 22:52 DC Amiodarone HCl (Cordarone Tablet) 200 mg DAILY PO 12/15/23 10:00 12/15/23 10:13 DC 12/15/23 08:45 Apixaban (Eliquis) 2.5 mg BID PO 12/15/23 10:00 12/14/23 22:52 DC Pantoprazole Sodium (Protonix) 40 mg DAILY IV 12/15/23 10:00 12/15/23 08:44 Atorvastatin Calcium (Lipitor) 20 mg HS PO 12/15/23 22:00 12/15/23 09:30 DC Potassium Chloride (Klor-Con Tablet) 40 meq BID PO 12/15/23 10:00 12/15/23 08:45 Atorvastatin Calcium (Lipitor) 40 mg HS PO 12/15/23 22:00 12/15/23 21:24 Lactulose 30 ml DAILY PO 12/16/23 10:00 Docusate Sodium (Colace Capsule) 100 mg BID PO 12/15/23 22:00 12/15/23 21:24 Apixaban (Eliquis) 2.5 mg BID PO 12/15/23 22:00 12/15/23 21:24 Review of Systems A 14-point review of systems is negative unless otherwise noted above Vital Signs Vital Signs Date Time Temp Pulse Resp B/P (MAP) Pulse Ox O2 Delivery O2 Flow Rate FiO2 12/16/23 09:24 98.3 62 19 91/50 (64) 95 98.3 12/15/23 20:30 Room Air* 0 21 Physical Exam Heart: S1 and S2 present. The patient is in sinus rhythm. Lungs: Clear to auscultation Abdomen: Benign. Extremities: Distal pulses palpable, 2+. With evidence for bilateral pedal edema Labs/Diagnostic Data Labs Test 12/16/23 04:53 12/15/23 14:10 12/15/23 11:11 12/14/23 21:39 Range/Units White Blood Count 6.0 4.4-10.8 10^3/uL Red Blood Count 3.29 L 4.0-5.20 10^6/uL Hemoglobin 10.9 #L 12.2-16.2 g/dL Hematocrit 32.3 #L 36.0-46.0 % Mean Corpuscular Volume 98.1 80.0-100.0 fL Mean Corpuscular Hemoglobin 33.3 H 28.0-32.0 pg Mean Corpuscular Hemoglobin Concent 33.9 32.0-36.0 g/dL Red Cell Distribution Width 14.9 H 11.8-14.3 % Platelet Count 187 140-450 10^3/uL Mean Platelet Volume 8.1 6.9-10.8 fL Neutrophils (%) (Auto) 70.6 37.0-80.0 % Lymphocytes (%) (Auto) 17.2 10.0-50.0 % Monocytes (%) (Auto) 11.1 0.0-12.0 % Eosinophils (%) (Auto) 0.8 0.0-7.0 % Basophils (%) (Auto) 0.3 0.0-2.0 % Neutrophils # (Auto) 4.3 1.6-8.6 10 ^3/uL Lymphocytes # (Auto) 1.0 0.4-5.4 10 ^3/uL Monocytes # (Auto) 0.7 0-1.3 10 ^3/uL Eosinophils # (Auto) 0.1 0-0.8 10 ^3/uL Basophils # (Auto) 0 0-0.2 10 ^3/uL Nucleated Red Blood Cells 0.1 % Sodium Level 144 136-145 mmol/L Potassium Level 3.9 3.5-5.1 mmol/L Chloride Level 111 H 98-107 mmol/L Carbon Dioxide Level 28 20-31 mmol/L Anion Gap 5 5-15 Blood Urea Nitrogen 24 H 9-23 mg/dL Creatinine 0.83 0.550-1.02 mg/dL Glomerular Filtration Rate Calc 69 >90 mL/min BUN/Creatinine Ratio 28.9 H 10.0-20.0 Serum Glucose 87 74-106 mg/dL Calcium Level 9.4 8.7-10.4 mg/dL Magnesium Level 2.2 1.6-2.6 mg/dL Total Bilirubin 0.8 0.2-1.0 mg/dL Aspartate Amino Transferase (AST) 17 13-40 U/L Alanine Aminotransferase (ALT) 14 7-40 U/L Alkaline Phosphatase 89 46-116 U/L Total Protein 5.2 L 5.7-8.2 g/dL Albumin 3.0 L 3.2-4.8 g/dL Stool Occult Blood Positive Negative Stool Occult Blood Sample #3 Negative Urine Color Light-yellow Yellow Urine Clarity Clear Clear Urine pH 7.0 5.0-9.0 Urine Specific [place] 1.013 1.001-1.035 Urine Protein Negative Negative Urine Ketones Negative Negative Urine Blood Negative Negative /uL Urine Nitrite Negative Negative Urine Bilirubin Negative Negative Urine Urobilinogen Normal Negative mg/dL Urine Leukocyte Esterase Negative Negative /uL Urine RBC 4 0 - 4 /hpf Urine WBC 1 0 - 5 /hpf Urine Squamous Epithelial Cells None seen <5 /hpf Urine Bacteria None seen None Seen /hpf Urine Glucose 4+ H Normal mg/dL Prothrombin Time 11.6 9.3-11.8 sec Prothrombin Time INR 1.10 0.9-1.15 Activated Partial Thromboplast Time 28.7 24.5-34.5 SEC Hemoglobin A1c 4.9 <5.7 % A1C B-Type Natriuretic Peptide 88.77 0-100 pg/mL Vitamin B12 Level 539 211-911 pg/mL Vitamin D 25-Hydroxy 61.5 30.0-100 ng/mL Thyroid Stimulating Hormone (TSH) 5.54 H 0.55-4.78 uIU/mL Free Thyroxine (T4) Calculated 1.21 0.89-1.76 ng/dL Free Triiodothyronine (T3) pg/mL 2.79 2.3-4.2 pg/mL Assessment This is an 83-year old female known outside to our practice who initially presented with rectal bleeding with associated constipation and suprapubic pain. It is of report patient was evaluated at [facility] prior to initial arrival undergoing evaluation of the constipation. Reports indicate at that time patient underwent enema was later noted to experience rectal bleeding. Upon ED arrival, 12-lead electrocardiogram revealed an atrial paced rhythm at 64bpm, no ST segment changes. CT imagine of the abdominal/pelvis was performed revealing urinary retention with a markedly distended bladder for which she underwent indwelling gil catheter placement. CT imaging further revealed presence of a stool filled rectum consistent with fecal impaction which she was started on Colace 100mg twice daily with last reported bowel movement 12/15/2023. Stool occult blood found positive which initial HGB level of found to be 13.8 with subsequent downtrend to 10.9.Echocardiogram was performed revealing a preserved LVEF of 55% with underlying stage I diastolic dysfunction which chest imaging revealed no evidence for vascular congestion in presence of a normal BNP level of 88.77. BLE Venous Duplex found negative for DVT. Initial potassium level of 2.5 (later improved). Initial creatinine level of 1.19 to now 0.83. TSH level found to be 1.21 with a FT3 level of 2.79. Initial magnesium level of 2.4. Urinalysis revealed no evidence for UTI. At present, patient denies any active chest pain, shortness of breath, palpitations, dizziness, syncope, orthopnea, paroxysmal nocturnal dyspnea, or any further cardiac related symptoms. Cardiology services have now been involved for cardiac aspects of care. Chest x-ray: IMPRESSION: 1. No acute cardiopulmonary disease.2. Cardiac size upper limits of normal.3. No radiographically apparent pulmonary edema. CT Abdominal/Pelvis: IMPRESSION:1. Urinary retention. Markedly distended bl adder with urine measuring 18 x 11 x 18 cm.2. 5 x 6 cm fat containing ventral hernia.3. Gallbladder is been surgically removed. BLE Venous Duplex: Impression: 1. No right or left femoropopliteal venous thrombosis. Echocardiogram: Normal left ventricular size and dimension. Normal left ventricular systolic function estimated ejection fraction 55%. There is a grade 1 diastolic dysfunction. Normal right ventricular size and dimension. Normal right ventricular systolic function. Normal biatrial size and dimension. Normal aortic valve structure and function. Normal mitral valve structure and function. Normal tricuspid valve structure function. The pulmonary valve is grossly normal. No pericardial effusion. Device Interrogation: (Biotronik) Implanted 08/01/2018, Battery status : 50%, 4.1 years to RAMIREZ, AF burden of 10% in October 2023, No AF in November and December of 2023, Pacemaker revealed normal function with adequate sensing and pacing parameters. Fecal impaction, resolved Rectal bleed, likely secondary to anal fissure versus hemorrhoid from underlying fecal impaction Urinary retention, status post insertion of indwelling Gil catheter Paroxysmal atrial fibrillation, on chronic anticoagulation Chronic diastolic heart failure, without exacerbation Presence of dual chamber PPM (Biotronik) Acute kidney injury, resolved Diabetes mellitus, controlled Hypertension, controlled Hypokalemia, resolved Hyperlipidemia Obesity Anemia Plan/Recommendation As patient is found to have positive stool occult blood in presence of anemia, it is considered justifiable to hold anticoagulation therapy for now Consider GI evaluation (inpatient versus outpatient) for further evaluation of rectal bleeding if warranted Cardiac-campos, patient is stable and can be followed outpatient Recommend resuming home medications upon discharge Remains on stool softener and PPI therapy Proceed with close observation for overt signs of fluid overload Proceed with strict intakes, outputs, and daily weights Proceed with close rate and rhythm surveillance Proceed with close hemodynamic surveillance Proceed with optimized blood pressure control Transfuse to sustain HGB level above 7.0 Sustain Magnesium level greater than 2.0 Sustain Potassium level greater than 4.0 Follow up renal function and electrolytes Management in telemetry Will proceed to follow from a cardiac perspective Further recommendations per clinical progression All available diagnostic labs, EKG's, and images were personally reviewed Patient's status, findings, and plan of care was reviewed and discussed with supervising physician Dr. Wayne, who is in agreement with current plan of care. Plan of care discussed with and agreed upon by patient / primary RN Prognosis: Guarded Thank you for allowing me to participate in the care of this patient. Further recommendations based on patients clinical course and progression, primary attending, and other consultants. Will continue to follow with primary attending. If you have any questions or concerns, please do not hesitate to contact me. A total of 75 minutes was spent reviewing the patient record, examining the patient, making a diagnostic and therapeutic plan, discussing this plan with medical personnel, following up on diagnostic studies and following the patient for clinical stability excluding any and all procedures. At least 50% of this time was spent in direct, [id number] contact. Plan discussed with: Other (Patient and Primary RN ) JOS ROMAN MANUAL LATHE OPERATOR Dec 16, 2023 09:50
--- NOTE | 2023-12-16 10:07 | DVHPN2 ---
Progress Note - Dictate Medical Necessity Reason Pt with a Central, PICC or Fol: No vital signs Vital Sign Date Time Temp Pulse Resp B/P (MAP) Pulse Ox O2 Delivery O2 Flow Rate FiO2 12/16/23 09:24 98.3 62 19 91/50 (64) 95 98.3 12/15/23 20:30 Room Air* 0 21 Total Intake and Output 12/15/23 12/15/23 12/16/23 15:00 23:00 07:00 Intake Total 200 ml 500 ml 2000 ml Output Total 2200 ml 550 ml Balance 200 ml -1700 ml 1450 ml medications Current Medications Medications Dose Ordered Sig/Mary Route Start Time Stop Time Status Last Admin Dose Admin Sodium Chloride 10 ml Q8HR IV 12/14/23 22:00 12/16/23 05:04 10 ML Acetaminophen 325 mg Q4HP PRN PO 12/14/23 21:15 Acetaminophen/ Hydrocodone Bitart 1 tab Q4HP PRN PO 12/14/23 21:15 12/15/23 21:28 1 TAB Ondansetron HCl 4 mg Q4HP PRN IV 12/14/23 21:15 Nitroglycerin 0.4 mg Q5MINP PRN SL 12/14/23 21:15 Morphine Sulfate 2 mg Q30M PRN IV 12/14/23 21:15 Pantoprazole Sodium 40 mg DAILY IV 12/15/23 10:00 12/15/23 08:44 40 MG Potassium Chloride 40 meq BID PO 12/15/23 10:00 12/15/23 08:45 40 MEQ Atorvastatin Calcium 40 mg HS PO 12/15/23 22:00 12/15/23 21:24 40 MG Lactulose 30 ml DAILY PO 12/16/23 10:00 Docusate Sodium 100 mg BID PO 12/15/23 22:00 12/15/23 21:24 100 MG Apixaban 2.5 mg BID PO 12/15/23 22:00 12/15/23 21:24 2.5 MG laboratory and microbiology Laboratory Tests 12/16/23 04:53 Test 12/16/23 04:53 Range/Units Serum Glucose 87 74-106 mg/dL RENATO GRIFFTIH PASTEURIZER HELPER Dec 16, 2023 10:07
[2023-12-16] MEDS: LACTULOSE 20Gm/30ML SOLN PO SCH (10:31)
[2023-12-16 10:39] LABS: Hematocrit 33.2 % (36.0-46.0); Hemoglobin 10.9 g/dL (12.2-16.2)
--- NOTE | 2023-12-16 16:28 | DVHDS2 ---
Discharge Summary Date of Admission Dec 14, 2023 at 21:11 Date of Discharge: Dec 16, 2023 Labs/Diagnostic Data: Laboratory Results Test 12/16/23 10:30 12/16/23 04:53 12/15/23 14:10 12/15/23 11:11 Hemoglobin 10.9 g/dL (12.2-16.2) Hematocrit 33.2 % (36.0-46.0) White Blood Count 6.0 10^3/uL (4.4-10.8) Red Blood Count 3.29 10^6/uL (4.0-5.20) Mean Corpuscular Volume 98.1 fL (80.0-100.0) Mean Corpuscular Hemoglobin 33.3 pg (28.0-32.0) Mean Corpuscular Hemoglobin Concent 33.9 g/dL (32.0-36.0) Red Cell Distribution Width 14.9 % (11.8-14.3) Platelet Count 187 10^3/uL (140-450) Mean Platelet Volume 8.1 fL (6.9-10.8) Neutrophils (%) (Auto) 70.6 % (37.0-80.0) Lymphocytes (%) (Auto) 17.2 % (10.0-50.0) Monocytes (%) (Auto) 11.1 % (0.0-12.0) Eosinophils (%) (Auto) 0.8 % (0.0-7.0) Basophils (%) (Auto) 0.3 % (0.0-2.0) Neutrophils # (Auto) 4.3 10 ^3/uL (1.6-8.6) Lymphocytes # (Auto) 1.0 10 ^3/uL (0.4-5.4) Monocytes # (Auto) 0.7 10 ^3/uL (0-1.3) Eosinophils # (Auto) 0.1 10 ^3/uL (0-0.8) Basophils # (Auto) 0 10 ^3/uL (0-0.2) Nucleated Red Blood Cells 0.1 % Sodium Level 144 mmol/L (136-145) Potassium Level 3.9 mmol/L (3.5-5.1) Chloride Level 111 mmol/L (98-107) Carbon Dioxide Level 28 mmol/L (20-31) Anion Gap 5 (5-15) Blood Urea Nitrogen 24 mg/dL (9-23) Creatinine 0.83 mg/dL (0.550-1.02) Glomerular Filtration Rate Calc 69 mL/min (>90) BUN/Creatinine Ratio 28.9 (10.0-20.0) Serum Glucose 87 mg/dL (74-106) Calcium Level 9.4 mg/dL (8.7-10.4) Magnesium Level 2.2 mg/dL (1.6-2.6) Total Bilirubin 0.8 mg/dL (0.2-1.0) Aspartate Amino Transferase (AST) 17 U/L (13-40) Alanine Aminotransferase (ALT) 14 U/L (7-40) Alkaline Phosphatase 89 U/L (46-116) Total Protein 5.2 g/dL (5.7-8.2) Albumin 3.0 g/dL (3.2-4.8) Stool Occult Blood Positive (Negative) Stool Occult Blood Sample #3 (Negative) Urine Color Light-yellow (Yellow) Urine Clarity Clear (Clear) Urine pH 7.0 (5.0-9.0) Urine Specific [place] 1.013 (1.001-1.035) Urine Protein Negative (Negative) Urine Ketones Negative (Negative) Urine Blood Negative /uL (Negative) Urine Nitrite Negative (Negative) Urine Bilirubin Negative (Negative) Urine Urobilinogen Normal mg/dL (Negative) Urine Leukocyte Esterase Negative /uL (Negative) Urine RBC 4 /hpf (0 - 4) Urine WBC 1 /hpf (0 - 5) Urine Squamous Epithelial Cells None seen /hpf (<5) Urine Bacteria None seen /hpf (None Seen) Urine Glucose 4+ mg/dL (Normal) Test 12/14/23 21:39 Prothrombin Time 11.6 sec (9.3-11.8) Prothrombin Time INR 1.10 (0.9-1.15) Activated Partial Thromboplast Time 28.7 SEC (24.5-34.5) Hemoglobin A1c 4.9 % A1C (<5.7) B-Type Natriuretic Peptide 88.77 pg/mL (0-100) Vitamin B12 Level 539 pg/mL (211-911) Vitamin D 25-Hydroxy 61.5 ng/mL (30.0-100) Thyroid Stimulating Hormone (TSH) 5.54 uIU/mL (0.55-4.78) Free Thyroxine (T4) Calculated 1.21 ng/dL (0.89-1.76) Free Triiodothyronine (T3) pg/mL 2.79 pg/mL (2.3-4.2) Other Laboratory Tests 12/16/23 10:30 12/16/23 04:53 Brief Hx & Hospital Course: Patient is a 83-year-old female with a past medical history of hypertension, hyperlipidemia, A-fib, asthma, who presents to the emergency department via EMS for a chief complaint of rectal bleeding along with constipation and suprapubic pain. EMS reports that patient was at the [facility] clinic today due to constipation, and had an enema inserted and shortly after staff noticed patient had bleeding. Patient complains of sharp and constant abdominal pain at a 9 out of 10 on the pain scale that patient reports has no alleviating factors. Patient reports that they are on Eliquis for A-fib. Patient denies any vomiting, fever, chills, nausea, or urinary symptoms at this time. This is a 83-year-old female that was admitted on December 13 for abdominal pain related to constipation and urinary retention. Patient reportedly had 2 L of urine retained. She was sent from [facility] facility for signs of rectal bleed. Apparently she had complaints of constant constipation and they att. Empted an enema at the facility which caused rectal bleeding. Facility also reported signs of black stool. Hemoglobin has dropped from 13 to 10.8 however patient was hydrated with IV fluids. Patient was found to have an anal fissure by previous hospitalist on examination. Patient is on chronic anticoagulation for paroxysmal A-fib with Eliquis. Anemia most likely from chronic anticoagulation and bleeding from anal fissure. Dillon catheter was discontinued and patient was able to void. Pacemaker was also interrogated and she has been in sinus rhythm for the past 2 months. Upon discussion with [facility] coordinators Dr. Wayne and Dr. Boo Eliquis will be discontinued at this time. Dr. Lau has been contacted outpatient for gastroenterology follow-up for possible repeat colonoscopy, last colonoscopy was in August. Lasix will be discontinued as well as metolazone. According to daughter patient has not been on metolazone but diuretics will be discontinued due to hypokalemia upon admission and slight GOLDY. Patient was discharged home on lactulose for constipation and patient will follow-up with [facility] physician in 1 week. 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 No signs or symptoms of active bleeding. Patient had to have Dillon catheter reinserted due to urinary retention. Patient has a follow-up appointment outpatient on Monday. [place] will arrange transportation for appointment. The patient received proper medical treatment and medications. Vital signs, Imaging and Laboratory Work was monitored daily. All consults recommendations were followed as provided. There were no complaints or new complaints upon discharge, all questions and concerns were answered. Patient was advised to return to the ER or call 911 if any headaches, dizziness, shortness of breath, chest pain, bleeding, fevers, or worsening of medical condition. Patient/Family was counseled about treatment plan, medications, possible side effects, patient verbalized understanding. All questions were answered to the best of my ability. The patient symptoms improved and they are okay to be DC. Condition at Discharge: Stable Final Diagnosis/Problems List Rectal bleed Paroxysmal A-fib Constipation Urinary retention Chronic anticoagulation GOLDY related to dehydration Anal fissure related to tear during defecation Discharge Disposition: Home Discharge Statement: "Patient was advised to return to the ER or call 911 if any headaches, dizziness, shortness of breath, chest pain, abdominal pain, bleeding, fevers, or worsening of medical condition. Patient was counseled about treatment plan, medications, possible side effects, patientverbalized understanding. All questions were answered to the best of my ability. This discharge took greater then 30 minutes in planning, reviewing documentation, counseling the patient, and discussing with other team members." ASSESSMENT ASSESSMENT Assessment RENATO GRIFFITH NP Dec 16, 2023 16:28
[2023-12-16] MEDS ORDERED: AMIO200T13 PO (17:05)
[2023-12-16] MEDS ORDERED: EMPA1TAB PO (17:05)
[2023-12-16] MEDS ORDERED: METO2.5T PO (17:05)
[2023-12-16] MEDS ORDERED: METH1CHW PO (17:05)
[2023-12-16] MEDS ORDERED: [UNRECOGNIZED DRUG - CODE] (17:06)
[2023-12-16] MEDS ORDERED: LACT10SO3 PO (17:27)
--- NOTE | 2023-12-16 21:45 | DVHHP2 ---
Admitting Diagnosis: Rectal bleeding History of Present Illness Patient is a 83-year-old female with a past medical history of hypertension, hyperlipidemia, A-fib, asthma, who presents to the emergency department via EMS for a chief complaint of rectal bleeding along with constipation and suprapubic pain. EMS reports that patient was at the [facility] clinic today due to constipation, and had an enema inserted and shortly after staff noticed patient had bleeding. Patient complains of sharp and constant abdominal pain at a 9 out of 10 on the pain scale that patient reports has no alleviating factors. Patient reports that they are on Eliquis for A-fib. Patient denies any vomiting, fever, chills, nausea, or urinary symptoms at this time. While in the emergency department the patient was evaluated by the provider, As per provider: Labs, vital signs, and imagining monitored. Patient will be admitted for further evaluation and treatment. I discussed admission with the patient/family and is in agreement to treatment plan Patient Family History: FH: breast cancer G8 MOTHER FH: emphysema G8 FATHER FH: smoking G8 FATHER Allergies: Coded Allergies: Penicillins (Verified Allergy, Unknown, 12/14/23) Home Meds Active Scripts Lactulose (Lactulose) 10 Gm/15 Ml Destiny, 10 GM PO DAILY for 30 Days, #450 ML Prov:RENATO GRIFFITH NP 12/16/23 Reported Medications Nystatin (Klayesta) 100,000 Unit/Gm Pow 12/16/23 Mecobalamin ([id number]) 1 Mg Chw, 1 TAB PO DAILY 12/16/23 Empagliflozin (Jardiance) 10 Mg Tab, 1 TAB PO DAILY 12/16/23 Amiodarone HCl (Amiodarone HCl) 200 Mg Tab, 1 TAB PO DAILY 12/16/23 Pantoprazole Sodium Sesquihydr (Pantoprazole Sodium) 40 Mg Tab, 1 TAB PO DAILY 12/15/23 Metoprolol Succinate (Metoprolol Succinate Er) 50 Mg Tab, 1 TAB PO DAILY 12/15/23 Sitagliptin Phosphate (Januvia) 100 Mg Tab, 1 TAB PO DAILY 12/15/23 Rosuvastatin Calcium (Rosuvastatin Calcium) 20 Mg Tab, 1 TAB PO DAILY 12/15/23 Discontinued Reported Medications Metolazone (Metolazone) 2.5 Mg Tab, 1 TAB PO 12/16/23 Apixaban Base (ELIQUIS) 2.5 Mg Tab, 1 TAB PO BID 12/15/23 Furosemide (Furosemide) 40 Mg Tab, 1 TAB PO DAILYPRN 12/15/23 Current Medications Current Medications Medications (Trade) Dose Ordered Sig/Mary Route PRN Reason Start Time Stop Time Status Last Admin Atorvastatin Calcium (Lipitor) 20 mg HS PO 12/15/23 22:00 12/15/23 09:30 DC Atorvastatin Calcium (Lipitor) 40 mg HS PO 12/15/23 22:00 12/16/23 20:38 Lactulose 30 ml DAILY PO 12/16/23 10:00 12/16/23 10:31 Docusate Sodium (Colace Capsule) 100 mg BID PO 12/15/23 22:00 12/16/23 20:37 Apixaban (Eliquis) 2.5 mg BID PO 12/15/23 22:00 12/16/23 20:38 Review of Systems Constitutional: denies chills, denies fever, denies malaise Eyes: denies eye pain, denies vision change ENT: denies ear pain, denies headache, denies nasal congestion, denies painful swallowing, denies voice change Cardiovascular: denies chest pain, denies edema, denies orthopnea, denies palpitations, denies paroxysmal nocturnal dyspnea Respiratory: denies cough, denies shortness of breath Gastrointestinal: denies constipation, denies diarrhea, denies nausea, denies vomiting Genitourinary: denies dysuria, denies frequent urination, denies urethral discharge Musculoskeletal: denies back pain, denies joint pain, denies muscle pain Skin: denies bruising, denies itching, denies rash Neurological: denies focal weakness, denies headache, denies sensory changes Psychiatric: denies anxiety, denies depression Endocrine: denies polydipsia, denies polyuria Hematologic/Lymphatic: denies easy bleeding, denies easy bruising, denies enlarged lymph nodes Allergic/Immunologic: denies allergy, denies hives Vital Signs Vital Signs Date Time Temp Pulse Resp B/P (MAP) Pulse Ox O2 Delivery O2 Flow Rate FiO2 12/16/23 20:00 16 96 Room Air* 0 21 12/16/23 18:40 97.8 73 12/16/23 17:18 131/88 (102) Physical Exam General Appearance: alert, no distress HEENT: EOMI, PERRLA, normal external inspect of ears, no icterus, no nasal drainage Neck: no carotid bruit, no jugular venous distention (JVD), no lymphadenopathy Chest: normal thorax Respiratory: clear to auscultation, normal air movement Cardiovascular: regular rate and rhythm, no diastolic murmur, no jugular venous distention (JVD), no rub, no systolic murmur Abdominal: soft, no hepatomegaly, no mass, no splenomegaly, no tenderness Genitourinary: grossly normal external Musculoskeletal: no joint tenderness, no swelling Extremities: normal pulses, no calf tenderness, no clubbing, no cyanosis, no edema Skin: no bruising, no jaundice, no rash Neurological: alert, No focal deficit Results Labs Test 12/16/23 10:30 12/16/23 04:53 12/15/23 14:10 12/15/23 11:11 Range/Units Hemoglobin 10.9 L 12.2-16.2 g/dL Hematocrit 33.2 L 36.0-46.0 % White Blood Count 6.0 4.4-10.8 10^3/uL Red Blood Count 3.29 L 4.0-5.20 10^6/uL Mean Corpuscular Volume 98.1 80.0-100.0 fL Mean Corpuscular Hemoglobin 33.3 H 28.0-32.0 pg Mean Corpuscular Hemoglobin Concent 33.9 32.0-36.0 g/dL Red Cell Distribution Width 14.9 H 11.8-14.3 % Platelet Count 187 140-450 10^3/uL Mean Platelet Volume 8.1 6.9-10.8 fL Neutrophils (%) (Auto) 70.6 37.0-80.0 % Lymphocytes (%) (Auto) 17.2 10.0-50.0 % Monocytes (%) (Auto) 11.1 0.0-12.0 % Eosinophils (%) (Auto) 0.8 0.0-7.0 % Basophils (%) (Auto) 0.3 0.0-2.0 % Neutrophils # (Auto) 4.3 1.6-8.6 10 ^3/uL Lymphocytes # (Auto) 1.0 0.4-5.4 10 ^3/uL Monocytes # (Auto) 0.7 0-1.3 10 ^3/uL Eosinophils # (Auto) 0.1 0-0.8 10 ^3/uL Basophils # (Auto) 0 0-0.2 10 ^3/uL Nucleated Red Blood Cells 0.1 % Sodium Level 144 136-145 mmol/L Potassium Level 3.9 3.5-5.1 mmol/L Chloride Level 111 H 98-107 mmol/L Carbon Dioxide Level 28 20-31 mmol/L Anion Gap 5 5-15 Blood Urea Nitrogen 24 H 9-23 mg/dL Creatinine 0.83 0.550-1.02 mg/dL Glomerular Filtration Rate Calc 69 >90 mL/min BUN/Creatinine Ratio 28.9 H 10.0-20.0 Serum Glucose 87 74-106 mg/dL Calcium Level 9.4 8.7-10.4 mg/dL Magnesium Level 2.2 1.6-2.6 mg/dL Total Bilirubin 0.8 0.2-1.0 mg/dL Aspartate Amino Transferase (AST) 17 13-40 U/L Alanine Aminotransferase (ALT) 14 7-40 U/L Alkaline Phosphatase 89 46-116 U/L Total Protein 5.2 L 5.7-8.2 g/dL Albumin 3.0 L 3.2-4.8 g/dL Stool Occult Blood Positive Negative Stool Occult Blood Sample #3 Negative Urine Color Light-yellow Yellow Urine Clarity Clear Clear Urine pH 7.0 5.0-9.0 Urine Specific [place] 1.013 1.001-1.035 Urine Protein Negative Negative Urine Ketones Negative Negative Urine Blood Negative Negative /uL Urine Nitrite Negative Negative Urine Bilirubin Negative Negative Urine Urobilinogen Normal Negative mg/dL Urine Leukocyte Esterase Negative Negative /uL Urine RBC 4 0 - 4 /hpf Urine WBC 1 0 - 5 /hpf Urine Squamous Epithelial Cells None seen <5 /hpf Urine Bacteria None seen None Seen /hpf Urine Glucose 4+ H Normal mg/dL Test 12/14/23 21:39 Range/Units Prothrombin Time 11.6 9.3-11.8 sec Prothrombin Time INR 1.10 0.9-1.15 Activated Partial Thromboplast Time 28.7 24.5-34.5 SEC Hemoglobin A1c 4.9 <5.7 % A1C B-Type Natriuretic Peptide 88.77 0-100 pg/mL Vitamin B12 Level 539 211-911 pg/mL Vitamin D 25-Hydroxy 61.5 30.0-100 ng/mL Thyroid Stimulating Hormone (TSH) 5.54 H 0.55-4.78 uIU/mL Free Thyroxine (T4) Calculated 1.21 0.89-1.76 ng/dL Free Triiodothyronine (T3) pg/mL 2.79 2.3-4.2 pg/mL Plan 1. Rectal bleed Monitor, repeat CPL 2. Paroxysmal A-fib Monitor, echocardiogram 3. Constipation Monitor, PPI 4. Urinary retention Monitor 5. Chronic anticoagulation Monitor 6. GOLDY related to dehydration Monitor, DC Dillon 7. Anal fissure related to tear during defecation Monitor, pacer interrogation Plan discussed with: Patient, Other RENATO GRIFFITH NP Dec 16, 2023 21:45
--- NOTE | 2023-12-17 08:56 | ECG ---
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
--- NOTE | 2023-12-17 08:56 | ECG ---
[facility] Test Date: 2023-12-15 Test Time: 10:27:54 Pat Name: TASHA GARCIA Department: Room: 0231T A Gender: F Youth Minister: SONI : 1940 Requested By: YESSY GÓMEZ Order Number: [id number] Reading MD: Diaz Duvall Measurements Intervals [place] Rate: 64 P: 0 LA: 202 QRS: 30 QRSD: 68 T: 56 QT: 465 QTc: 480 Interpretive Statements Atrial-paced complexes Abnormal R-wave progression, early transition Electronically Signed On 12-18-2023 17:24:30 PST by Diaz Duvall Please click the below link to view image of tracing.
[2023-12-18] MEDS ORDERED: PNEUMOCOCCAL VACC POLYS 25 MCG/0.5 ML VIAL IM ONE (11:00)
[2023-12-18 12:17] LABS: Hepatitis B Core Total AB Negative (Negative)
[2023-12-18 13:31] LABS: Hepatitis A Total Antibody Positive (Negative); Hepatitis B Surface Antibody Negative (Negative); Hepatitis B Surface Antigen Negative (Negative); Hepatitis C Antibody Negative (Negative)
== END 2023-12-16 21:26 | disposition home or self-care (01) | DRG 393 ==
LOC: EDBD 15:22 → ER 15:35 → OVERFLOW 21:11 → CENTRAL 23:19 → TELE-CENTR 12-15 09:38 → TELE-EAST 12-15 10:23
PROVIDERS: ADMIT Internal Medicine Geriatric Medicine; ATTEND Internal Medicine Geriatric Medicine
DX: K60.2 Anal fissure, unspecified (principal); N17.0 Acute kidney failure with tubular necrosis; D68.69 Other thrombophilia; I50.32 Chronic diastolic (congestive) heart failure; K56.41 Fecal impaction; R33.9 Retention of urine, unspecified; E86.0 Dehydration; K76.89 Other specified diseases of liver; E87.6 Hypokalemia; E11.9 Type 2 diabetes mellitus without complications; E78.5 Hyperlipidemia, unspecified; J45.909 Unspecified asthma, uncomplicated; I48.0 Paroxysmal atrial fibrillation; E66.9 Obesity, unspecified; D64.9 Anemia, unspecified; I11.0 Hypertensive heart disease with heart failure; E83.52 Hypercalcemia; K43.9 Ventral hernia without obstruction or gangrene; Z82.5 Family history of asthma and other chronic lower respiratory diseases; Z79.01 Long term (current) use of anticoagulants; Z80.3 Family history of malignant neoplasm of breast; Z88.0 Allergy status to penicillin; Z90.49 Acquired absence of other specified parts of digestive tract; Z68.29 Body mass index [BMI] 29.0-29.9, adult
CPT/HCPCS: 36415; 71045; 74176; 80053; 81001; 82270; 82306; 82607; 83036; 83735; 83880; 84439; 84443; 84481; 85014; 85018; 85025; 85610; 85730; 86704; 86706; 86708; 86803; 87340; 93005; 93306; 93970; 97110; 97163; G0378; J2405; J2470; J3480